=== PATIENT | female | born 1995 | race Caucasian/White ===

== ENCOUNTER 2019-04-13 08:15 | Outpatient (RCR) | payer OTHER ==
--- NOTE | 2019-03-31 18:06 | PT INITIAL EVALUATION ---
MEDICAL DIAGNOSIS: right achilles tendinitis, possible rupture or tear TREATMENT DIAGNOSIS: same DATE OF ONSET: 02/28/19 SUBJECTIVE: Ryan Burgos presents to physical therapy with complaints of achilles pain following a popping sensation when she was leaping. She reports that she has been in a walking boot for two weeks and was on crutches as well. She reports that she has weaned off the crutches and is able to walk around without too much pain in her achilles tendon. She reports that her precautions included: no dancing, ambulation in the boot, and gentle AROM with her R ankle. She reports that she had an xray but no MRI currently. She rates her current pain to be 5/10. She reports that if she rests her pain will decrease to 3/10. She reports that if she performs PF or walks longer distances she rates her pain to be 6-7/10. Pain location is mid point of achilles tendon. Pain scale is 5 on a ten point pain scale. REHAB PROBLEM LIST: Increased Pain Decreased ROM Decreased Strength Decreased Endurance Decreased Balance Decreased Function Decreased Mobility Decreased Gait PREVIOUS MEDICAL HISTORY: See EMR OCCUPATION: [employer] Student OBJECTIVE: Posture: She demonstrates normal postural mechanics ROM: R ankle AROM: PF: limited with pain. DF: limited with pain. Inversion: limited with pain. Eversion: full with no pain. PROM of R ankle: PF: minimal restriction with pain as compared to L side. DF: minimal restriction with pain as compared to L side. Inversion: minimal restriction as compared to L side. Eversion: minimal restriction as compared to L side. Strength: Did not test strength due to recent injury as where she is in the healing process Palpation: TTP: R lateral side of mid point to insertional point of her achilles tendon. Sensation: Intact Special Tests: Simon test: (squeeze calf): R achilles: intact L achilles: intact. Mobility: Independent Gait: She demonstrated antalgic gait with decreased L step length, decreased swing phase of gait and decreased stance phase of gait on R LE. Balance: Did not test will test in the future. ASSESSMENT: Ryan will benefit from skilled physical therapy addressing the listed impairments to improve function and QOL. Based on my examination, it appears that the achilles tendon intact and will return to prior level of function. Short Term Goals 3 weeks: Pt will demonstrate full PROM-AROM in her R ankle without any pain to improve function and QOL. 6 weeks: Pt will be independent on her home exercise program to assist her to return to prior level of function to improve QOL. 6 weeks: Pt will demonstrate normal gait mechanics without any pain to improve function and QOL. Patient's Goals get back to walking, dancing, running, and weight lifting in the gym PLAN: Patient to be seen for Manual Therapy/STM/MET Strengthening/condition Ice/Heat Range of Motion Ultrasound Work Hardening/Cond Stretching Iontophoresis Neuromuscular Re-ed Closed Chain Program Electrical Stim Posture/Body mechanics Gait Trg/Balance Trg Home Exercise Program Therapeutic Activities 2x/Week for 6 Weeks If you have any questions, comments, or concerns about this report or plan, please contact me at . Thank you, Chidi Moreira, PT, DPT MTDD
[~2019-04-13 08:15] MED LIST: AMIT25PO14 MC; CYCL10TA29 PO; FLUO-177 PO; HYDR-653 PO; MIRT-17 PO; ONDA8TAB98 PO; OXYC-865 PO; PROM-110 PO; TRAM-420 PO
--- NOTE | 2019-04-13 15:07 | PT PLAN OF CARE ---
Physician: Segundo Sweeney MD Patient is being seen: 2x/week Therapist: Chidi Moreira, PT, DPT Medical Diagnosis: right achilles tendinitis, possible rupture or tear Treatment Diagnosis: same Date of Onset: 02/28/19 Date of Initial Evaluation: 03/30/19 Date patient was last seen: 04/13/19 Number of treatments: 5 Number of cancellations/No shows: 0 INTERVENTIONS: Manual Therapy/STM/MET Strengthening/condition Ice/Heat Range of Motion Ultrasound Work Hardening/Cond Stretching Iontophoresis Neuromuscular Re-ed Closed Chain Program Electrical Stim Posture/Body mechanics Gait Trg/Balance Trg Home Exercise Program Therapeutic Activities GOALS: 3 weeks: Pt will demonstrate full PROM-AROM in her R ankle without any pain to improve function and QOL. 6 weeks: Pt will be independent on her home exercise program to assist her to return to prior level of function to improve QOL. 6 weeks: Pt will demonstrate normal gait mechanics without any pain to improve function and QOL. PATIENT'S GOAL: get back to walking, dancing, running, and weight lifting in the gym Status of Patient's Goals: Progressed well Patient Compliance: Good Prognosis: Excellent Reasons for continuing therapy: This is a discharge note for Ryan Burgos. She reports that she is doing well. She reports that this will be the last visit before heading back home. She denies any pain. She states that she feels weak with ankle eversion but not painful. She reports that she continues to perform her home exercise program and feels like everything is doing well. She has demonstrated significant improvements in the following areas: abolished pain with ambulation without the boot, increased PROM-AROM with normalized end feels, increased ankle strength (DF, PF, Inversion are all equal with L ankle; however, eversion continues to be weaker than L ankle but not painful), progressed to eccentric loading with gastroc and soleus with the normal soreness following to continue the remodeling phase, and return to prior level of function with gait mechanics. We educated her on time frames and what the achilles should feel like prior to engaging in agility and plyometric type movements in the near future. She is independent on all. Posture: She demonstrates normal postural mechanics ROM: R ankle AROM: PF: limited with pain. DF: NIL with normal end feels. Inversion: NIL with normal end feels. Eversion: full with no pain. PROM of R ankle: PF: NIL with normal end feels. DF: NIL with normal end feels. Inversion: NIL with normal end feels. Eversion: NIL with normal end feels Strength: Did not test strength due to recent injury as where she is in the healing process Palpation: TTP: no longer TTP Special Tests: Smion test: (squeeze calf): R achilles: intact L achilles: intact. Mobility: Independent If you have any questions, please contact me at [phone]. Thank you, Chidi Moreira, PT, DPT MTDD
== END 2019-04-13 18:00 | disposition home or self-care (01) ==
LOC: PT 08:15
PROVIDERS: ATTEND Orthopaedic Surgery
DX: M76.61 Achilles tendinitis, right leg (principal)
CPT/HCPCS: 97161